=== PATIENT | female | born 1935 | race Caucasian/White ===

== ENCOUNTER 2023-03-10 07:50 | Emergency (ER) | payer MEDICARE, OTHER, SELFPAY ==
[2023-03-10] VITALS (7 sets, daily range): BP systolic 156–196; BP diastolic 76–98; PULSE 67–81; RESP 17; TEMP 36.6; O2SAT 94–97; BMI 21.1
--- NOTE | 2023-03-10 08:10 | CT_ITS ---
FINAL REPORT TECHNIQUE: Axial CT images of the cervical spine were obtained without contrast. Sagittal and coronal reformatted images were also obtained. This study was performed with techniques to keep radiation doses as low as reasonably achievable (ALARA). Individualized dose reduction techniques using automated exposure control or adjustment of mA and/or kV according to the patient's size were employed. CLINICAL HISTORY: Acute neck pain, fall prior to arrival COMPARISON: None FINDINGS: There is no evidence of fracture or dislocation. There is mild anterolisthesis of C4 on C5. There is moderate degenerative change. There is no evidence of canal stenosis. Prevertebral soft tissues are unremarkable. Note is made of a spiculated soft tissue opacity at the left lung apex measuring 24 mm worrisome for neoplasm. IMPRESSION: No fracture or acute bony abnormality identified. Soft tissue opacity left lung apex worrisome for neoplasm. Could be further evaluated with PET-CT. Reviewed, Interpreted and Dictated by David Dee III, MD Transcribed by Danielle Rush Authenticated and [facility]
--- NOTE | 2023-03-10 08:10 | CT_ITS ---
FINAL REPORT TECHNIQUE: Axial CT images of the face were obtained without contrast. Coronal reformatted images were also obtained. This study was performed with techniques to keep radiation doses as low as reasonably achievable, (ALARA). Individualized dose reduction techniques using automated exposure control or adjustment of mA and/or kV according to the patient''s size were employed. CLINICAL HISTORY: Fall prior to arrival, small lac, bleeding above right eye. COMPARISON: None FINDINGS: There is no evidence of fracture.The orbits are intact.The globes are intact. There is a fluid level in the left sphenoid sinus. There is partial opacification of the right sphenoid sinus. Mucosal thickening is noted of the left maxillary sinus. No soft tissue mass is seen. IMPRESSION: No fracture or acute bony abnormality identified. Findings of sinusitis. Reviewed, Interpreted and Dictated by David Dee III, MD Transcribed by Danielle Rush Authenticated and [facility]
--- NOTE | 2023-03-10 08:10 | CT_ITS ---
FINAL REPORT CLINICAL HISTORY: Fall prior to arrival, small lac above right eye. bleeding on the back of the head COMPARISON: None FINDINGS: Axial images of the head were obtained without contrast. Coronal reformatted images were also obtained. This study was performed with techniques to keep radiation doses as low as reasonably achievable (ALARA). Individualized dose reduction techniques using automated exposure control or adjustment of mA and/or kV according to the patient''s size were employed. There is mild generalized age appropriate atrophy. There is no evidence of intracranial hemorrhage or mass. The ventricular size is within normal limits. There is no evidence of shift of the midline structures. No acute skull abnormality is seen on the bone window images. Postoperative changes from left-sided craniotomy. There is right parietal scalp soft tissue swelling. IMPRESSION: No acute intracranial abnormality. Reviewed, Interpreted and Dictated by David Dee III, MD Transcribed by Danielle Rush Authenticated and [facility]
--- NOTE | 2023-03-10 08:11 | PC.NURSE ---
rad notified of Ct orders
--- NOTE | 2023-03-10 08:23 | PC.NURSE ---
pt in CT
--- NOTE | 2023-03-10 08:47 | HMH.EDGENADL ---
Discharge Plan Disposition Patient Disposition: Xfer Inpatient Rehab Fac Condition: Fair Chief Complaint: Fall Referrals Follow up/Referrals: Noble Wallace [Primary Care Provider] - See instructions ( follow-up for staple removal in 10 days) Clinical Impressions Clinical Impression: Laceration of occipital region of scalp without complication, Frequent falls Instructions Patient Instructions: How to Prevent Falls, DI for Laceration Repair -- [place] Print Language Print Language: Serbian Discharge ED Provider: Newton Ray General Adult HPI General Chief complaint: Fall Stated complaint: fall Time Seen by Provider: 03/10/23 08:48 Mode of Arrival: EMS Limitations: No Limitations Description of Symptoms (Recalled from ER Triage Doc. by RN): pt to ED from [facility] after a trip and fall going to the bathroom this morning. on assessment pt has a laceration to her head. pt denies any LOC or other pain at this time. pt is not taking any blood thinners according to her MAR from [facility]. History of Present Illness HPI narrative: patient presents to the emergency department after reportedly falling just prior to arrival. The patient fell after trying to get up out of bed. She denies being dizzy. The son states that recently she had fallen, sustained a T5 fracture as well as a clavicle fracture. She is unsteady on her feet at baseline. Patient comes in complaining of a headache. Denies any neck pain. Does describe some facial pain. Denies any chest pain, abdominal pain, new back pain, extremity injury. She is unsure when her last tetanus shot was Related Data Allergies Allergy/AdvReac Type Severity Reaction Status Date / Time No Known Allergies Allergy Verified 03/10/23 08:10 [facility] Disclaimer: The information contained in this section may have been updated after the patient was seen, as this information can be updated by other users. Social History Smoking Status: Never smoker alcohol intake: never current occupational status: retired Travel in the last 8 weeks: None ROS Obtained: Yes All systems reviewed & no additional complaints except as documented Constitutional Constitutional: Reports headache(s) ENT Ears, Nose, Mouth, and Throat: Reports headache(s) Integumentary/Breasts Skin/Breast: Reports other ( scalp laceration) Neurologic Neurologic: Reports headache(s) Physical Exam General General appearance: other ( awake, alert. No acute distress. Elderly appearing. Frail appearing) Head Head exam: other ( 3 cm laceration to the right posterior parietal region. No active bleeding at this time. Scalp hematoma noted. Mildly tender to palpation. No depression there is a secondary laceration which was approximately 5 cm just inferior to the 3 cm laceration) Eye Eye exam: Present normal appearance, PERRL, EOMI and other ( right periorbital contusion with minimal swelling noted) Neck Neck exam: Present normal inspection Chest Chest inspection: Present normal inspection Respiratory Respiratory exam: Present normal lung sounds bilaterally Cardiovascular Cardiovascular exam: Present regular rate, normal rhythm and normal heart sounds Abdominal Exam Abdominal exam: Present other ( soft, nontender, nondistended. No guarding. No rebound. Normal bowel sounds.) Extremities Exam Extremities exam: Present normal inspection Neurological Exam Neurological exam: Present alert and oriented X3 Psychiatric Psychiatric exam: Present normal affect and normal mood Medical Decision Making Medical Records Medical records reviewed: Yes I reviewed the patient's medical records. Gary Inquiry Pt receiving controlled substance: No Vital Signs: 03/10/23 07:51 Temperature 97.8 F Temperature Source Oral Pulse Rate [Left Radial] 79 Respiratory Rate 17 Blood Pressure [Right Arm] 196/98 H Blood Pressure Mean [Right Arm] 130 Blood Press
--- NOTE | 2023-03-10 09:20 | PC.NURSE ---
pt assisted to the bedside commode and changed into a new brief at this time. pt tolerated well
--- NOTE | 2023-03-10 09:42 | PC.NURSE ---
OSMAN HOWARD at placing [facility]
--- NOTE | 2023-03-10 10:32 | PC.NURSE ---
spoke with Jeff Woodall who stated they wont be able to get the patient until around 1pm
--- NOTE | 2023-03-10 10:40 | PC.NURSE ---
pt report called back to [facility] where they were informed that the son would be taking the patient back via POV but would need assistance getting her out of the car.
== END 2023-03-10 11:37 ==
PROVIDERS: Emergency Provider Emergency Medicine; PCP Family Medicine
DX: R51.9 Headache, unspecified (principal); S01.01XA Laceration without foreign body of scalp, initial encounter; W01.0XXA Fall on same level from slipping, tripping and stumbling without subsequent striking against object, initial encounter; Z23 Encounter for immunization
CPT/HCPCS: 12004; 70450; 70486; 72125; 90471; 90715; 96372; 99284; 99285

== ENCOUNTER → 2023-10-03 19:17 | Outpatient (CLI) | payer MEDICARE, OTHER, SELFPAY ==
[2023-10-03 19:42] LABS: Chloride 99 mmol/L (98-107); Sodium 136 mmol/L (136-145)
[2023-10-03 19:43] LABS: Potassium 4.2 mmoL/L (3.5-5.1)
[2023-10-03 19:45] LABS: Alanine Aminotransferase 44 U/L (12-78); Alkaline Phosphatase 151 U/L (38-126); Anion Gap 15.2 mEq/L (5-15); Aspartate Amino Transferase 57 U/L (14-36); Bilirubin,Total 0.7 mg/dl (0.2-1.3); Blood Urea Nitrogen 25 mg/dl (7-17); Carbon Dioxide 26 mmol/L (22.0-30.0); Estimated Glomerular Filt Rate 59 ml/min (>60); GFR (African American) 71 ML/MIN (>60)
[2023-10-03 19:46] LABS: Albumin Level 4.6 g/dl (3.5-5.0); Albumin/Globulin Ratio 1.6 (1.1-1.8); Calcium 8.8 mg/dl (8.4-10.2); Globulin 2.9 g/dL (1.3-3.2); Glucose 120 mg/dl (74-100); Total Protein,Serum 7.5 g/dl (6.3-8.2)
== END ==
PROVIDERS: PCP Family Medicine; Visit Provider Family Medicine
DX: I13.0 Hypertensive heart and chronic kidney disease with heart failure and stage 1 through stage 4 chronic kidney disease, or unspecified chronic kidney disease (principal); N18.9 Chronic kidney disease, unspecified
CPT/HCPCS: 80053

== ENCOUNTER 2023-10-28 07:48 | Outpatient (CLI) | payer MEDICARE, OTHER, SELFPAY ==
--- NOTE | 2023-10-28 07:49 | CA_ITS ---
APPROVED REPORT EXAM: Comprehensive 2D, Doppler, and color-flow Echocardiogram Photo Mask Inspector: Katie Kaiser RVT Ht: 4 ft 10 in Wt: 102lbs BSA: 1.37 BP: 161/84 mmHg Indications: HTN,ABN EKG,CM,HTN,EDEMA 2D Dimensions LA Volume 51.10 mL LA Volume Index 37.30 mL/m2 (M/F) 16-34 M-Mode Dimensions RVDd 2.50 cm (0.9-2.6) LA Diam 3.24 cm (1.9-4.0) LVDd 3.31 cm (3.5-5.7) LVDs 2.23 cm (3.5-5.7) IVSd 1.45 cm (0.6-1.1) PWd 0.41 cm (0.6-1.1) EF (Teich) 62.20% FS 32.60% EDV (Teich) 44.50 mL TAPSE 2.22 (<1.7) ESV (Teich) 16.80 mL LV Diastology E Decel Time 63 (160-240 msec) E/A Ratio 1.2 Aortic Valve MEAHGAN Index 0.99 cm2/m2 AoV Peak Juan. 110.0 (50-130 cm/s) AI PHT 581.00 ms AO Peak GR. 4.80 mmHg AO Mean GR. 2.60 (<5 mmHg) AO VTI 27.0 (18-25 cm) MEAGHAN (VTI) 1.39 (2.5-4.5 cm2) Mitral Valve MV E Max Juan. 90.0 (40-130 cm/s) MV A Velocity 73.0 (40-130 cm/s) E/A Ratio 1.24 MV PHT 19.0 ms Pulmonary Valve PV Peak Velocity 58.0 (50-150 cm/s) Tricuspid Valve TR P. Velocity 376.00 cm/s RAP Estimate 10.00 mmHg RVSP 66.50 mmHg Left Ventricle The left ventricle is normal size. The left ventricular systolic function is normal. The left ventricular ejection fraction is within the normal range. There is increased LV wall thickness. The septum is asynchronous. Grade 2 diastolic dysfunction is present. LVEF is 55%. Right Ventricle The right ventricle is normal in size. The right ventricular systolic function is normal. Atria The left atrium is moderately dilated. The right atrium is moderately dilated. There is no Doppler evidence of interatrial shunt. Aortic Valve The aortic valve is mildly thickened. There is no aortic valvular stenosis. Moderate aortic regurgitation. Mitral Valve The mitral valve leaflets are mildly thickened. No evidence of mitral valve stenosis. Mild to moderate mitral regurgitation. Tricuspid Valve The tricuspid valve leaflets are thin and pliable. Mild to moderate tricuspid regurgitation. RVSP is 40-45 mmHg. Pulmonic Valve The pulmonary valve is normal in structure. Mild pulmonic regurgitation. Great Vessels The aortic root is normal in size. The ascending aorta is normal in size. IVC is normal in size and collapses >50% with inspiration. Pericardium There is no pericardial effusion. Other Information Study Quality: Fair Conclusion Normal biventricular systolic function. Grade 2 diastolic dysfunction. Moderate biatrial enlargement. Moderate AI. Mild to moderate MR. Mild to moderate TR. Elevated RVSP 40-45 mmHg. Electronically signed by : Magda Metcalf MD 11/01/2023 00:15:56
--- NOTE | 2023-10-28 07:49 | CA_ITS ---
FINAL REPORT TECHNIQUE: Grayscale, color Doppler and duplex Doppler ultrasound of the kidneys, aorta and renal arteries was performed. Multiple velocities were measured. CLINICAL HISTORY: HTN COMPARISON: None FINDINGS: Aorta velocity: 88 cm/sec Right kidney: 9.3 cm. No evidence of hydronephrosis or mass. Right intrarenal RI: 0.56-0.74 Right renal artery velocity: 78 cm/sec. Right RAR (Renal artery-Aortic Ratio): 0.89 Left Kidney: Abnormally small measuring 6.9 cm in length. No evidence of hydronephrosis or mass. Left intrarenal RI: 0.59-0.65 Left renal artery velocity: 80 cm/sec. Left RAR (Renal Artery-Aortic Ratio): 0.91 IMPRESSION: No evidence of significant renal artery stenosis. Abnormally small left kidney. CT angiogram or postcontrast MR angiogram would be more sensitive for evaluation of possible renal artery stenosis. Reviewed, Interpreted and Dictated by David Dee III, MD Transcribed by Danielle Rush Authenticated and [facility]
== END 2023-10-28 23:59 ==
LOC: RT 07:49
PROVIDERS: PCP Family Medicine; Visit Provider Physician Assistant
DX: I10 Essential (primary) hypertension (principal); R94.31 Abnormal electrocardiogram [ECG] [EKG]; I42.8 Other cardiomyopathies
CPT/HCPCS: 93306; 93976

== ENCOUNTER 2024-05-08 22:03 | Emergency (ER) | payer MEDICARE, SELFPAY ==
[2024-05-08 22:03] VITALS: BP 177/95; PULSE 82; RESP 18; TEMP 36.9; O2SAT 94; BMI 21.9
[2024-05-08 22:30] VITALS: BP 163/86; PULSE 82; O2SAT 92
--- NOTE | 2024-05-08 22:37 | ED_ITS ---
<Statement entered by Isi Reyez MD - 05/08/24 23:20> I was consulted by the OLIVER, and we discussed the complexity of the problems being addressed. I approved the treatment and management plan for this patient's care in the emergency department, thus performing a substantive portion of the medical decision making. Isi Reyez MD, BUTCH, FACEP Discharge Plan Disposition Chief Complaint: Fall Prescriptions Prescriptions: No Action acetaminophen 325 mg capsule 325 mg PO QID PRN alendronate 70 mg/75 mL solution 35 mg PO WEEKLY calcium carbonate 500 mg calcium (1,250 mg) tablet 500 mg PO DAILY CertaVite Senior 0.4 mg-300 mcg- 250 mcg tablet 1 tab PO DAILY primidone 250 mg tablet 250 mg PO HS pantoprazole [Protonix] 20 mg tablet,delayed release (DR/EC) 20 mg PO DAILY levothyroxine [Synthroid] 50 mcg tablet 50 mcg PO DAILY cholecalciferol (vitamin D3) 25 mcg (1,000 unit) capsule 25 mcg PO DAILY zinc sulfate 50 mg zinc (220 mg) capsule 50 mg PO DAILY ondansetron 4 mg tablet,disintegrating 4 mg PO Q6H meclizine 25 mg tablet 25 mg PO DAILY PRN losartan 100 mg tablet 100 mg PO DAILY furosemide [Lasix] 20 mg tablet 20 mg PO DAILY terazosin 2 mg capsule 2 mg PO DAILY Adult Robitussin Peak Cold M-S 5-10-100 mg/5 mL liquid 10 ml PO Q4H PRN hydralazine 25 mg tablet 25 mg PO TID PRN (Reason: Systolic > 180) Qty: 90 2RF Referrals Follow up/Referrals: Provider,Referral, [Primary Care Provider] - See instructions Discharge ED Provider: Isi Reyez General Adult [facility] General Chief complaint: Fall Stated complaint: Fall, Lac on R forearm Time Seen by Provider: 05/08/24 22:37 Mode of Arrival: EMS Source of Information: Patient and EMS Limitations: No Limitations Description of Symptoms (Recalled from ER Triage Doc. by RN): pt was changing shoes for the night and got tripped up and fell, no loc and no prolonged down time unwitnessed by prison staff, pt has a goose egg on right cheek bone that has bruising to it as well as deep laceration right forearm, bleeding is controlled and edges are not approxiamate, wound has varying depths an edges History of Present Illness HPI narrative: Patient presents for evaluation of a fall injury. Patient bathroom and changing close for bedtime wearing socks and slipped fell landing on the floor and the bottom. She is not sure what she struck but she suffered a laceration to her mid right forearm and struck her face likely on the door frame she says. She did not lose consciousness and currently denies neck pain back pain chest pain headache shortness of breath fever chills hemoptysis hematochezia melena nausea vomiting diarrhea altered sensorium. Related Data Home Medications Medication Instructions Recorded Confirmed acetaminophen 325 mg capsule 325 mg PO QID PRN 10/14/23 11/08/23 alendronate 70 mg/75 mL oral 35 mg PO WEEKLY 10/14/23 11/08/23 solution calcium carbonate 500 mg PO DAILY 10/14/23 11/08/23 cholecalciferol (vitamin D3) 25 25 mcg PO DAILY 10/14/23 11/08/23 mcg (1,000 unit) capsule furosemide 20 mg tablet (Lasix) 20 mg PO DAILY 10/14/23 11/08/23 levothyroxine 50 mcg tablet 50 mcg PO DAILY 10/14/23 11/08/23 (Synthroid) losartan 100 mg tablet 100 mg PO DAILY 10/14/23 11/08/23 meclizine 25 mg tablet 25 mg PO DAILY PRN 10/14/23 11/08/23 [id number] acid 0.4 1 tab PO DAILY 10/14/23 11/08/23 mg-lycopene 300 mcg-lutein 250 mcg tablet (CertaVite Senior) ondansetron 4 mg disintegrating 4 mg PO Q6H 10/14/23 11/08/23 tablet pantoprazole 20 mg tablet,delayed 20 mg PO DAILY 10/14/23 11/08/23 release (Protonix) [id number] 5 10 ml PO Q4H PRN 10/14/23 11/08/23 mg-10 mg-100 mg/5 mL oral liquid (Adult Robitussin Peak Cold M-S) primidone 250 mg tablet 250 mg PO HS 10/14/23 11/08/23 terazosin 2 mg capsule 2 mg PO DAILY 10/14/23 11/08/23 zinc sulfate 50 mg zinc (220 mg) 50 mg PO DAILY 10/14/23 11/08/23 capsule Previous Rx's Medication Instructions Recorded hydralazine 25 mg tablet 25 mg PO TID PRN Systolic > 180 10/14/23 #90 tabs Allergies Allergy/AdvReac Type Severity Reaction Status Date / Time No Known Allergies Allergy Verified 11/08/23 15:11 [facility] Disclaimer: The information contained in this section may have been updated after the patient was seen, as this information can be updated by other users. Social History Smoking Status: Never smoker alcohol intake: never current occupational status: retired Travel in the last 8 weeks: None ROS Obtained: Yes Systems reviewed as appropriate & no additional complaints except as documented Physical Exam General General appearance: alert and in no apparent distress Head Head exam: other (Patient has ecchymosis on the right cheekbone/temporal area no bony deformity) Eye Eye exam: Present normal appearance, PERRL and EOMI ENT ENT exam: Present normal exam, normal oropharynx and mucous membranes moist Neck Neck exam: Present normal inspection and full ROM; Absent tenderness Chest Chest inspection: Present normal inspection; Absent tenderness Respiratory Respiratory exam: Present normal lung sounds bilaterally Cardiovascular Cardiovascular exam: Present regular rate, normal rhythm and normal heart sounds Abdominal Exam Abdominal exam: Present soft and normal bowel sounds; Absent tenderness Extremities Exam Extremities exam: Absent normal inspection (Patient has a very large laceration on the dorsum of the right forearm. Full assessment is deferred until workup is complete. Hemostatic currently) Back Exam Back exam: Present normal inspection; Absent tenderness Neurological Exam Neurological exam: Present alert, oriented X3 and CN II-XII intact Medical Decision Making Medical Records Medical records reviewed: Yes I reviewed the patient's medical records. Gary Inquiry Pt receiving controlled substance: No Vital Signs: 05/08/24 22:03 Temperature 98.5 F Temperature Source Oral Pulse Rate [Left Radial] 82 Respiratory Rate 18 Blood Pressure [Left Arm] 177/95 H Blood Pressure Mean [Left Arm] 122 02 Sat by Pulse Oximetry 94 L Oxygen Delivery Method Room Air Lab Data Lab results reviewed: Yes I reviewed the patient's lab results. Orders (Tests/Meds): ORDERS Category Date Time Status CT bony pelvis Stat Cat Scan 05/08/24 22:[address] cervical spine wo con Stat Cat Scan 05/08/24 22:[address] head/brain wo con Stat Cat Scan 05/08/24 22:[address] lumbar spine wo con Stat Cat Scan 05/08/24 22:[address] thoracic spine wo con Stat Cat Scan 05/08/24 22:47 Ordered Elbow XR right 2 views [XR elbow RT 2V] Stat Exams 05/08/24 22:45 Ordered Forearm XR right 2 views [XR forearm RT 2V] Stat Exams 05/08/24 22:45 Ordered Hand XR right 2 views [XR hand RT 2V] Stat Exams 05/08/24 22:45 Ordered Medical Decision Narrative: In summary patient is a 89-year-old female who presents to the emergency department for evaluation of fall. Patient is hemodynamically stable upon arrival, afebrile. Physical exam is remarkable for a large hematoma to her right cheekbone/temporal area with no bony deformity, a large laceration to the dorsum of her right forearm with again no bony deformity noted and hematoma at her left thumb. Patient appears to be neurovascularly intact distally in all 4 extremities with no focal neurologic deficits. She did not lose consciousness is not complaining of any pain elsewhere other than the thumb face and arm. Differential diagnosis includes contusion versus fracture versus intracranial injury versus complex laceration versus complicated laceration etc. Initial workup will be conducted with CT scan of the head without contrast and of the C- spine T-spine L-spine bony pelvis with plain film x-rays of the right upper extremity.. Initial interventions include Tylenol. Initial workup initiated and pending at the time of handoff to Dr. Cano at 2300 hrs. Critical Care Critical Care Time Critical Care Time: No
--- NOTE | 2024-05-08 22:45 | XR_ITS ---
PROCEDURE INFORMATION: Exam: XR Right Hand Exam date and time: 05/08/2024 11:15 PM Age: 89 years old Clinical indication: Pain; Hand; Right; Additional info: Fall injury, hematoma right thumb TECHNIQUE: Imaging protocol: Radiologic exam of the right hand. Views: 1 or 2 views. COMPARISON: CR XR FOREARM RT 2V 05/08/2024 11:15 PM FINDINGS: Bones/joints: Severe osteoarthritis and mild lateral subluxation of the thumb CMC joint. Otherwise normal alignment. Advanced osteoarthritis in the interphalangeal joints. No acute fracture. Soft tissues: Mild soft tissue swelling. IMPRESSION: 1. 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 2. No acute fracture.
--- NOTE | 2024-05-08 22:45 | XR_ITS ---
PROCEDURE INFORMATION: Exam: XR Right Forearm Exam date and time: 05/08/2024 11:15 PM Age: 89 years old Clinical indication: Pain; Lower or forearm; Right; Additional info: Fall TECHNIQUE: Imaging protocol: Radiologic exam of the right forearm. Views: 2 views. COMPARISON: CR XR HAND RT 2V 05/08/2024 11:15 PM FINDINGS: Bones/joints: Advanced osteoarthritis with mild lateral subluxation at the thumb CMC joint. Otherwise normal alignment. No acute fracture. Soft tissues: Soft tissue swelling in the thumb. Laceration and soft tissue swelling in the volar forearm. No foreign bodies. IMPRESSION: 1. No acute fracture. 2. Osteoarthritis. 3. Laceration and soft tissue swelling in the volar forearm. No foreign bodies.
--- NOTE | 2024-05-08 22:45 | XR_ITS ---
PROCEDURE INFORMATION: Exam: XR Right Elbow Exam date and time: 05/08/2024 11:15 PM Age: 89 years old Clinical indication: Pain; Elbow; Right; Additional info: Fall TECHNIQUE: Imaging protocol: Radiologic exam of the right elbow. Views: 1 or 2 views. COMPARISON: CR XR FOREARM RT 2V 05/08/2024 11:15 PM FINDINGS: Bones/joints: No acute fracture. Normal alignment. Elbow joint is unremarkable. Enthesopathic changes in the medial and lateral epicondyles. Soft tissues: Laceration with subcutaneous air and soft tissue swelling in the volar forearm. IMPRESSION: 1. No acute fracture or malalignment. 2. Laceration and soft tissue swelling in the volar forearm.
--- NOTE | 2024-05-08 22:47 | CT_ITS ---
PROCEDURE INFORMATION: Exam: CT Cervical Spine Without Contrast Exam date and time: 05/08/2024 11:03 PM Age: 89 years old Clinical indication: Injury or trauma; Additional info: Trauma, critical injury suspected TECHNIQUE: Imaging protocol: Computed tomography of the cervical spine without contrast. Radiation optimization: All CT scans at this facility use at least one of these dose optimization techniques: automated exposure control; mA and/or kV adjustment per patient size (includes targeted exams where dose is matched to clinical indication); or iterative reconstruction. COMPARISON: CT CERVICAL SPINE WO CON 03/10/2023 8:16 AM FINDINGS: Bones: No acute fracture. Advanced discogenic and facet degenerative changes. Grade 1 anterolisthesis at C4-C5. Otherwise normal alignment. Mild spinal stenosis at C5-C6. Lungs: Irregular spiculated 3.0 x 2.2 cm mass in the left upper lobe. Soft tissues: Unremarkable. IMPRESSION: 1. No acute fracture. 2. Advanced degenerative spondylosis. 3. Large mass in the left upper lobe concerning for malignancy. See chest CT report.
--- NOTE | 2024-05-08 22:47 | CT_ITS ---
PROCEDURE INFORMATION: Exam: CT Pelvis Without Contrast; Skeletal Exam date and time: 05/08/2024 11:12 PM Age: 89 years old Clinical indication: Injury or trauma; Additional info: Trauma, critical injury suspected TECHNIQUE: Imaging protocol: Computed tomography of the pelvis without contrast. Exam focused on the skeleton. Radiation optimization: All CT scans at this facility use at least one of these dose optimization techniques: automated exposure control; mA and/or kV adjustment per patient size (includes targeted exams where dose is matched to clinical indication); or iterative reconstruction. COMPARISON: CT BONY PELVIS 05/08/2024 11:12 PM FINDINGS: Bones/joints: Multiple sclerotic foci in the right L3 vertebral body and pelvis. No destructive bone lesions. Bones are osteopenic. Advanced degenerative arthrosis in the SI joints. 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 Grade 1 anterolisthesis at L4-L5. Severe multilevel neural foraminal stenoses in the lower lumbar spine. Bilateral hip joint osteoarthritis. Soft tissues: Unremarkable. IMPRESSION: 1. No acute fracture or malalignment. 2. Advanced degenerative changes in the spine and pelvis. 3. Multiple sclerotic foci in the spine and pelvis may be bone islands or may be seen in the setting of metastatic disease.
--- NOTE | 2024-05-08 22:47 | CT_ITS ---
PROCEDURE INFORMATION: Exam: CT Thoracic Spine Without Contrast Exam date and time: 05/08/2024 11:05 PM Age: 89 years old Clinical indication: Injury or trauma; Additional info: Trauma, critical injury suspected TECHNIQUE: Imaging protocol: Computed tomography of the thoracic spine without contrast. Radiation optimization: All CT scans at this facility use at least one of these dose optimization techniques: automated exposure control; mA and/or kV adjustment per patient size (includes targeted exams where dose is matched to clinical indication); or iterative reconstruction. COMPARISON: CT CERVICAL SPINE WO CON 05/08/2024 11:03 PM FINDINGS: Bones/joints: Age-indeterminate compression fractures of the T4 superior endplate and T5 inferior endplate. Chronic T9 and T11 compression fractures with changes of prior kyphoplasty. Mild discogenic and facet degenerative changes. Multiple healed posterior rib fractures. No subluxation. Soft tissues: Unremarkable. IMPRESSION: 1. Age-indeterminate T4 and T5 compression fractures. 2. Chronic T9 and T11 compression fractures. 3. Chronic healed posterior rib fractures.
--- NOTE | 2024-05-08 22:47 | CT_ITS ---
PROCEDURE INFORMATION: Exam: CT Head Without Contrast Exam date and time: 05/08/2024 11:01 PM Age: 89 years old Clinical indication: Injury or trauma; Additional info: Trauma, critical injury suspected TECHNIQUE: Imaging protocol: Computed tomography of the head without contrast. Radiation optimization: All CT scans at this facility use at least one of these dose optimization techniques: automated exposure control; mA and/or kV adjustment per patient size (includes targeted exams where dose is matched to clinical indication); or iterative reconstruction. COMPARISON: CT HEAD/BRAIN WO CON 08/05/2024 23:01 FINDINGS: Brain: Mild dural thickening underlying the left craniotomy. This is a chronic finding. There is a small amount of extra-axial blood overlying the right frontal convexity example image 190 series 5. No associated mass effect. Moderate chronic brain volume loss and chronic small vessel ischemic changes. Cerebral ventricles: No ventriculomegaly. Paranasal sinuses: Small amount of secretions in the paranasal sinuses. Hyperostosis of the sphenoid sinus suggests chronic sinusitis. Mild mucosal thickening in the paranasal sinuses. Mastoid air cells: Visualized mastoid air cells are well aerated. Orbital cavities: Status post bilateral cataract surgery. Bones: Status post left craniotomy. Soft tissues: Hematoma in the right side of the face. IMPRESSION: There is a small amount of extra-axial blood overlying the right frontal convexity example image 190 series 5. No associated mass effect.
--- NOTE | 2024-05-08 22:47 | CT_ITS ---
PROCEDURE INFORMATION: Exam: CT Lumbar Spine Without Contrast Exam date and time: 05/08/2024 11:08 PM Age: 89 years old Clinical indication: Injury or trauma; Additional info: Trauma, critical injury suspected TECHNIQUE: Imaging protocol: Computed tomography of the lumbar spine without contrast. Radiation optimization: All CT scans at this facility use at least one of these dose optimization techniques: automated exposure control; mA and/or kV adjustment per patient size (includes targeted exams where dose is matched to clinical indication); or iterative reconstruction. 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 Grade 1 anterolisthesis at L4-L5 and L5-S1. Otherwise normal alignment. Chronic T11 and L1 compression fractures and prior vertebroplasty. No acute fracture. Severe discogenic degenerative changes at L4-L5 and L5-S1. Advanced multilevel facet arthrosis and hypertrophy. Incidental bone islands in the L3 vertebral body and sacrum. Multilevel foraminal stenosis, worst at L4-L5 and L5-S1. Soft tissues: Unremarkable. IMPRESSION: 1. No acute fracture. 2. Chronic T11 and L1 compression fractures. 3. Advanced degenerative changes in the spine and pelvis.
--- NOTE | 2024-05-08 23:03 | CT_ITS ---
PROCEDURE INFORMATION: Exam: CT Abdomen And Pelvis Without Contrast Exam date and time: 05/08/2024 11:18 PM Age: 89 years old Clinical indication: Injury or trauma; Fall TECHNIQUE: Imaging protocol: Computed tomography of the abdomen and pelvis without contrast. Radiation optimization: All CT scans at this facility use at least one of these dose optimization techniques: automated exposure control; mA and/or kV adjustment per patient size (includes targeted exams where dose is matched to clinical indication); or iterative reconstruction. COMPARISON: CT BONY PELVIS 05/08/2024 11:12 PM FINDINGS: Liver: Unremarkable. No mass. Gallbladder and biliary ducts: Normal. No calcified stones. No ductal dilation. Pancreas: Normal. No ductal dilation. Spleen: Normal. No splenomegaly. Adrenal glands: Normal. No mass. Kidneys and ureters: 1.8 cm exophytic right renal upper pole cyst. No calculi or hydronephrosis. Stomach and bowel: Large amount of fecal material in the colon. No obstruction. No inflammatory changes. Appendix: No evidence of appendicitis. Intraperitoneal space: No free air. No abscess or free fluid. Vasculature: Unremarkable. No aortic aneurysm or dissection. Lymph nodes: Unremarkable. No enlarged lymph nodes. Urinary bladder: Unremarkable as visualized. Reproductive: Unremarkable as visualized. Bones/joints: Advanced degenerative changes in the spine and pelvis. Grade 1 anterolisthesis at L4-L5 and L5-S1. Chronic compression fractures prior kyphoplasty at T9, T11, and L1. Multiple healed left rib fractures. Bone island in the right L3 vertebral body and pedicle. Soft tissues: Unremarkable. IMPRESSION: 1. No acute findings. 2. Chronic T9, T11, and L1 compression fractures. 3. Constipation. COMMENTS: Consistent with the [employer]'s Incidental Findings Committee white paper (J Am Ernie Radiol 2018): Any incidental renal lesion less than 1 cm or classified as too small to characterize, or any incidental cystic renal lesion characterized as simple-appearing, is likely benign. No follow-up imaging is recommended for these lesions per consensus recommendations based on imaging criteria.
--- NOTE | 2024-05-08 23:03 | CT_ITS ---
PROCEDURE INFORMATION: Exam: CT Chest Without Contrast; Diagnostic Exam date and time: 05/08/2024 11:15 PM Age: 89 years old Clinical indication: Injury or trauma; Additional info: Fall TECHNIQUE: Imaging protocol: Diagnostic computed tomography of the chest without contrast. Radiation optimization: All CT scans at this facility use at least one of these dose optimization techniques: automated exposure control; mA and/or kV adjustment per patient size (includes targeted exams where dose is matched to clinical indication); or iterative reconstruction. COMPARISON: CT THORACIC SPINE WO CON 05/08/2024 11:05 PM FINDINGS: Lungs: 3.1 x 2.4 cm spiculated mass in the anterior left upper lobe. 8 mm subpleural ground-glass opacity in the superior segment of the right lower lobe. Mild subsegmental atelectasis. Pleural spaces: Unremarkable. No pneumothorax. No pleural effusion. Heart: Mild cardiomegaly. Small pericardial effusion. Coronary arteries: Mild coronary artery atherosclerotic disease. Lymph nodes: No enlarged lymph nodes. Vasculature: No aortic aneurysm. Bones/joints: Age-indeterminate compression fractures of the T4 superior endplate and T5 inferior endplate. Chronic compression fractures in prior kyphoplasty at T9, T11, and L1. Multiple healed posterior rib fractures. Numerous small nonspecific sclerotic foci in multiple ribs. Soft tissues: Unremarkable. IMPRESSION: 1. Spiculated 3.2 x 2.4 cm left upper lobe mass concerning for malignancy. 2. Age-indeterminate T4 and T5 compression fractures. 3. Chronic T9, T11, and L1 compression fractures. 4. Multiple sclerotic foci in the ribs are nonspecific but could be seen in the setting of metastatic disease. 5. Cardiomegaly.
[2024-05-08] MEDS: TET/DIPHTH/PERT-ADULT 0.5ML SYRINGE 0.5 ML IM (23:59)
--- NOTE | 2024-05-09 | PC.NURSE ---
Dr. Cano at bedside repairing laceration
[2024-05-09] MEDS: CEFAZOLIN SODIUM 2 GM in 0.9 % SODIUM CHLORIDE 100 ML IV (00:02)
--- NOTE | 2024-05-09 00:17 | PC.NURSE ---
[facility] called with critical findings on pt's head ct. at bedside suturing pt's RUE laceration and I showed MD the final read on head ct.
--- NOTE | 2024-05-09 00:59 | PC.NURSE ---
Contacted [facility] in regards to consult with Neuro surgery for this patient.
[2024-05-09 01:00] VITALS: BP 163/89; PULSE 85; O2SAT 94
--- NOTE | 2024-05-09 01:17 | PC.NURSE ---
Pt assisted to BSC, placed in a pt gown, and provided 2 warm blankets.
[2024-05-09 01:30] VITALS: BP 179/95; PULSE 84; O2SAT 93
--- NOTE | 2024-05-09 01:54 | PC.NURSE ---
Pt is resting comfortably at this time. Vitals are stable.
[2024-05-09 02:00] VITALS: BP 167/87; PULSE 84; O2SAT 92
--- NOTE | 2024-05-09 02:07 | PC.NURSE ---
spoke with nurse from [facility] and gave update at this time.
[2024-05-09 02:30] VITALS: BP 157/86; PULSE 83; O2SAT 94
--- NOTE | 2024-05-09 04:00 | PC.NURSE ---
Rounded on pt, assisted her to BSC. Helped pt back to bed and repositioned her in bed
--- NOTE | 2024-05-09 05:00 | CT_ITS ---
PROCEDURE INFORMATION: Exam: CT Head Without Contrast Exam date and time: 05/09/2024 5:01 AM Age: 89 years old Clinical indication: Injury or trauma; Additional info: Repeat CT, hemorrhagic contusion TECHNIQUE: Imaging protocol: Computed tomography of the head without contrast. Radiation optimization: All CT scans at this facility use at least one of these dose optimization techniques: automated exposure control; mA and/or kV adjustment per patient size (includes targeted exams where dose is matched to clinical indication); or iterative reconstruction. COMPARISON: CT HEAD/BRAIN WO CON 05/08/2024 11:01 PM FINDINGS: Brain: Small right frontal subarachnoid hemorrhage is not significantly changed. No new intracranial hemorrhage. Generalized cerebral volume loss and changes of white matter microvascular. No midline shift or mass effect. Chronic dural thickening at the left craniotomy site. Cerebral ventricles: No hydrocephalus. Paranasal sinuses: Mild mucosal thickening in the paranasal sinuses, most severe in the sphenoid sinuses. Mastoid air cells: Mastoid air cells are clear. Bones: No fracture. Soft tissues: Unremarkable. IMPRESSION: 1. Stable right frontal subarachnoid hemorrhage. 2. No new abnormalities.
--- NOTE | 2024-05-09 05:03 | PC.NURSE ---
pt back to room from CT
--- NOTE | 2024-05-09 05:22 | PC.NURSE ---
Jeff Woodall updated on patient status
--- NOTE | 2024-05-09 06:46 | PC.NURSE ---
Pt used bedside commode.
[2024-05-09 07:37] VITALS: BP 157/86; PULSE 83; RESP 19; TEMP 36.6
== END 2024-05-09 07:38 | disposition home or self-care (01) ==
PROVIDERS: Emergency Provider Emergency Medicine
DX: S51.811A Laceration without foreign body of right forearm, initial encounter (principal); R91.8 Other nonspecific abnormal finding of lung field; W18.39XA Other fall on same level, initial encounter; S06.310A Contusion and laceration of right cerebrum without loss of consciousness, initial encounter; Z23 Encounter for immunization
CPT/HCPCS: 12052; 70450; 71250; 72125; 72128; 72131; 72192; 73070; 73090; 73120; 74176; 90471; 90715; 96365; 99285

== ENCOUNTER 2024-05-21 13:46 | Outpatient (CLI) | payer MEDICARE, SELFPAY ==
--- NOTE | 2024-05-21 13:56 | XR_ITS ---
PROCEDURE INFORMATION: Exam: XR Lumbosacral Spine Exam date and time: 05/21/2024 1:47 PM Age: 89 years old Clinical indication: Injury or trauma; Fall; Blunt trauma (contusions or hematomas); Prior surgery; Surgery date: 6+ months; Surgery type: Kyphoplasty; Additional info: Pain from recent fall TECHNIQUE: Imaging protocol: Radiologic exam of the lumbosacral spine. Views: 2 or 3 views. COMPARISON: CT LUMBAR SPINE WO CON 05/08/2024 11:08 PM FINDINGS: Bones/joints: Vertebroplasties at T9 , T11, and L1. anterolisthesis of L4 with respect to L5 and L5 with respect to S1. Deformity in the sacrum consistent with prior fracture.. No acute fracture identified. Soft tissues: Unremarkable. IMPRESSION: 1. 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 2. Anterolisthesis of L4 with respect to L5 and L5 with respect to S1. 3. Deformity in the sacrum consistent with prior fracture.. 4. No acute fracture identified.
== END 2024-05-21 23:59 | disposition home or self-care (01) ==
LOC: RAD 13:49
PROVIDERS: PCP Family Medicine; Visit Provider Family Medicine
DX: M43.16 Spondylolisthesis, lumbar region (principal); M54.9 Dorsalgia, unspecified; R29.6 Repeated falls; Z98.890 Other specified postprocedural states
CPT/HCPCS: 72100

== ENCOUNTER 2024-05-24 16:11 | Outpatient (CLI) | payer MEDICARE, OTHER, SELFPAY ==
--- NOTE | 2024-05-24 16:14 | MR_ITS ---
PROCEDURE INFORMATION: Exam: MR Lumbar Spine Without Contrast Exam date and time: 05/24/2024 5:15 PM Age: 89 years old Clinical indication: Injury or trauma; Fall; Blunt trauma (contusions or hematomas); Additional info: Back pain , recent fall TECHNIQUE: Imaging protocol: Magnetic resonance imaging of the lumbar spine without contrast. COMPARISON: 1. CT LUMBAR SPINE WO [facility] 05/08/2024 11:[address] ABDOMEN PELVIS WO [facility] 05/08/2024 11:18 PM FINDINGS: Bones/joints: A moderate decrease in vertebral height/burst fracture is identified of the T10 vertebral body, which has progressed compared to the previous CT. Mild retropulsion is identified of the dorsal cortex. There is a linear band of T2 hyperintensity within this vertebral body, consistent with acute or subacute fracture. A focal concavity is identified of the superior T10 endplate. A mild compression fracture is visualized of the L1 vertebral body, with a moderate compression fracture of T11. Hypointense vertebroplasty and retropulsion are identified at these levels. Grade 2 anterolisthesis of L5 on S1, with bilateral spondylolysis. Grade 1 anterolisthesis is visualized of L4 on L5 with slight retrolisthesis of L3 on L4. Minimal narrowing of the thecal sac is identified at T11 and L1, due to retropulsion. Within the posterior right iliac bone, a nonspecific sclerotic lesion is identified measuring 8 mm in diameter, without progression compared to the previous CT. T1 hypointense lesions are identified within the L3 and L4 vertebral bodies. This is sclerotic at the L3 level when correlated the prior CT, currently measuring 1.6 x 1.1 cm. Spinal cord: The distal end of the conus medullaris ends at T12-L1, normal in position. Multilevel findings: Degenerative changes are noted at multiple lumbar and lower thoracic levels, with a decrease in the T2 signal intensity of the discs, as well as disc bulge/osteophyte complexes. T10-T11: Right neural foraminal narrowing is visualized at T10-11. This level is out of the field of view, limiting the evaluation. L1-L2: Bilateral facet arthropathy with hypertrophy of the ligamentum flavum. Mild disc bulging is visualized. No significant spinal canal stenosis. Mild right neural foraminal narrowing. There is slight narrowing the inferior aspect of the left neural foramen. L2-L3: Bilateral facet arthropathy with hypertrophy of the ligamentum flavum. A broad-based disc bulge is visualized, with minimal spinal canal stenosis. There is narrowing of both lateral recesses. Mild bilateral neural foraminal narrowing is identified. L3-L4: Bilateral facet arthropathy with hypertrophy of the ligamentum flavum. Mild disc bulging is visualized, without significant spinal canal stenosis. There is narrowing of both lateral recesses. Mild bilateral neural foraminal narrowing is identified. L4-L5: Bilateral facet arthropathy with hypertrophy of the ligamentum flavum. A broad-based disc bulge is visualized, with minimal narrowing of the thecal sac and narrowing of both lateral recesses. Mild bilateral neural foraminal narrowing is identified. L5-S1: Bilateral facet arthropathy. A broad-based disc bulge is visualized, without significant spinal canal stenosis. Moderate right and moderate to severe left neural foraminal narrowing is visualized. Soft tissues: Soft tissue swelling is seen posteriorly. Paravertebral edema is identified at the level of the lower thoracic spine. Gallbladder and biliary ducts: The gallbladder is mildly distended. Intraperitoneal space: There is a small amount of free fluid within the pelvis. Reproductive: At the fundus of the uterus, there is a T2 hypointense intramural lesion measuring 6 mm, likely representing a fibroid. Anterior to the L5-S1 disc and likely within the ovary, there is a 1.4 cm cystic collection of fluid. IMPRESSION: 1. A moderate decrease in vertebral height/burst fracture is identified of the T10 vertebral body, which has progressed compared to the previous CT. Mild retropulsion is identified of the dorsal cortex. There is a linear band of T2 hyperintensity within this vertebral body, consistent with acute or subacute fracture. 2. A mild compression fracture is visualized of the L1 vertebral body, with a moderate compression fracture of T11. Hypointense vertebroplasty and retropulsion are identified at these levels. These findings are stable compared to the prior CT. 3. Grade 2 anterolisthesis of L5 on S1, with bilateral spondylolysis. Grade 1 anterolisthesis is visualized of L4 on L5 with slight retrolisthesis of L3 on L4. 4. Degenerative changes are noted at multiple lumbar and lower thoracic levels, as described above. 5. Minimal narrowing of the thecal sac is identified at T11 and L1, due to retropulsion. Minimal narrowing of the thecal sac at L2-L3 and L4-L5. 6. Neural foraminal narrowing at all lumbar levels, as well as T10-11. 7. There is a small amount of free fluid within the pelvis. 8. At the fundus of the uterus, there is a small intramural lesion, likely representing a fibroid. Anterior to the L5-S1 disc and likely within the ovary, there is a 1.4 cm cystic collection of fluid. Correlation with ultrasonography is suggested. 9. Within the posterior right iliac bone, a nonspecific sclerotic lesion is identified measuring 8 mm in diameter, without progression compared to the previous CT. T1 hypointense lesions are identified within the L3 and L4 vertebral bodies. This is sclerotic at the L3 level when correlated the prior CT, currently measuring 1.6 x 1.1 cm. Correlate for a clinical history of malignancy and possible follow-up bone scan are recommended. 10. The gallbladder is mildly distended. Clinical correlation recommended. 11. Additional findings described above.
--- NOTE | 2024-05-24 16:14 | MR_ITS ---
PROCEDURE INFORMATION: Exam: MR Head Without Contrast Exam date and time: 05/24/2024 5:15 PM Age: 89 years old Clinical indication: Injury or trauma; Fall; Blunt trauma (contusions or hematomas); Additional info: Head trauma , fall TECHNIQUE: Imaging protocol: Magnetic resonance imaging of the head without contrast. COMPARISON: CT HEAD/BRAIN WO CON 05/09/2024 5:01 AM FINDINGS: Brain: Age-related involutional changes and chronic microvascular ischemic disease. No acute infarct. No mass effect or midline shift. No extra-axial collection. No acute intracranial hemorrhage. Basal cisterns are patent. Cerebral ventricles: Normal. No ventriculomegaly. Bones: Left craniotomy changes. Paranasal sinuses: Normal as visualized. No acute sinusitis. Mastoid air cells: Normal as visualized. No mastoid effusion. Orbital cavities: Bilateral cataract surgery. Soft tissues: Unremarkable. IMPRESSION: No acute infarct, acute intracranial hemorrhage, or mass effect.
== END 2024-05-24 23:59 | disposition home or self-care (01) ==
LOC: RAD 16:12
PROVIDERS: PCP Family Medicine; Visit Provider Family Medicine
DX: S09.90XA Unspecified injury of head, initial encounter (principal); M54.9 Dorsalgia, unspecified
CPT/HCPCS: 70551; 72148

== ENCOUNTER 2024-09-04 23:30 | Emergency (ER) | payer MEDICARE, SELFPAY ==
--- NOTE | 2024-09-04 23:21 | CT_ITS ---
PROCEDURE INFORMATION: Exam: CT Cervical Spine Without Contrast Exam date and time: 09/04/2024 11:47 PM Age: 89 years old Clinical indication: Injury or trauma; Fall; Additional info: Head trauma TECHNIQUE: Imaging protocol: Computed tomography of the cervical spine without contrast. Radiation optimization: All CT scans at this facility use at least one of these dose optimization techniques: automated exposure control; mA and/or kV adjustment per patient size (includes targeted exams where dose is matched to clinical indication); or iterative reconstruction. COMPARISON: CT CERVICAL SPINE WO CON 05/08/2024 11:03 PM FINDINGS: Bones: No acute fracture. There is some straightening of the spine. Slight anterolisthesis is noted at C4-C5. Severe degenerative disc disease is noted at C5-C6 and C6-C7. Diffuse severe facet arthropathy. No significant disc bulge or herniation. No severe spinal canal stenosis. Bilateral bony foraminal stenosis at C5-C6. Paranasal sinuses: Sphenoid sinus disease noted. Lungs: Lung apices are normal. Soft tissues: Unremarkable. IMPRESSION: No acute cervical spine fracture.
--- NOTE | 2024-09-04 23:21 | CT_ITS ---
PROCEDURE INFORMATION: Exam: CT Head Without Contrast Exam date and time: 09/04/2024 11:44 PM Age: 89 years old Clinical indication: Injury or trauma; Fall; Additional info: Head trauma TECHNIQUE: Imaging protocol: Computed tomography of the head without contrast. Radiation optimization: All CT scans at this facility use at least one of these dose optimization techniques: automated exposure control; mA and/or kV adjustment per patient size (includes targeted exams where dose is matched to clinical indication); or iterative reconstruction. COMPARISON: CT HEAD/BRAIN WO CON 09/04/2024 11:44 PM FINDINGS: Brain: There is age related atrophy. No hemorrhage. Previously noted right subdural hematoma has resolved. There is mild periventricular white matter hypodensity consistent with chronic small vessel disease. No mass effect. Cerebral ventricles: Ventricular enlargement secondary to parenchymal atrophy. Paranasal sinuses: Visualized sinuses are unremarkable. No fluid levels. Mastoid air cells: Visualized mastoid air cells are well aerated. Orbital cavities: There has been bilateral lens extraction. Bones: Evidence of left parietal craniotomy. No acute fracture. Soft tissues: There is a small posterior left parietal scalp hematoma. IMPRESSION: 1. No acute intracranial abnormality. 2. Small posterior left parietal scalp hematoma. 3. Previously noted right subdural hematoma has resolved.
--- NOTE | 2024-09-04 23:22 | XR_ITS ---
PROCEDURE INFORMATION: Exam: XR Pelvis Exam date and time: 09/04/2024 11:55 PM Age: 89 years old Clinical indication: Injury or trauma; Fall TECHNIQUE: Imaging protocol: Radiologic exam of the pelvis. Views: 1 or 2 view. Total images: 1 COMPARISON: CT ABDOMEN PELVIS WO CON 05/08/2024 11:18 PM FINDINGS: Bones/joints: Osteopenia. Symmetric mild degenerative changes bilateral hips. Sclerotic bone lesion in the right ilium. No pelvic fracture. No joint dislocation. No widening of the pubic symphysis or sacroiliac joints. Mild degenerative changes lower lumbar spine. Sclerotic appearance of the right L3 pedicle. Soft tissues: Unremarkable soft tissues. Vasculature: Numerous pelvic phleboliths. IMPRESSION: 1. No acute pelvic fracture. 2. Sclerotic bone lesions in the right ilium and right L3 pedicle, corresponding with prior CT. Correlate with history of bone metastases.
--- NOTE | 2024-09-04 23:22 | XR_ITS ---
PROCEDURE INFORMATION: Exam: XR Chest Exam date and time: 09/04/2024 11:55 PM Age: 89 years old Clinical indication: Injury or trauma; Fall TECHNIQUE: Imaging protocol: Radiologic exam of the chest. Views: 1 view. Total images: 1 COMPARISON: CT CHEST WO CON 05/08/2024 11:15 PM FINDINGS: Lungs: Approximate 3 cm left upper lobe mass concerning for malignancy and corresponding with prior chest CT May 08, 2024. Mild left basilar atelectasis or scarring. Right lung is clear. No pulmonary vascular congestion. Pleural spaces: Unremarkable. No pleural effusion. No pneumothorax. Heart/Mediastinum: Mild cardiomegaly. No mediastinal widening. Vasculature: Atherosclerotic and tortuous thoracic aorta. Diaphragm: Chronic mild elevation left hemidiaphragm. Bones/joints: Thoracic vertebral compression deformities and vertebroplasty changes. IMPRESSION: 1. Similar 3 cm left upper lobe mass, highly concerning for primary malignancy. This corresponds with chest CT findings May 08, 2024. 2. Mild left basilar atelectasis or scarring 3. Stable mild cardiomegaly 4. Multilevel vertebroplasties.
[2024-09-04 23:27] VITALS: BP 179/89; PULSE 75; RESP 16; TEMP 36.8; O2SAT 94; BMI 22.8
--- NOTE | 2024-09-04 23:33 | ED_ITS ---
Discharge Plan Disposition Patient Disposition: Home, Self-Care Prescriptions Prescriptions: No Action acetaminophen 325 mg capsule 325 mg PO QID PRN alendronate 70 mg/75 mL solution 35 mg PO WEEKLY calcium carbonate 500 mg calcium (1,250 mg) tablet 500 mg PO DAILY CertaVite Senior 0.4 mg-300 mcg- 250 mcg tablet 1 tab PO DAILY primidone 250 mg tablet 250 mg PO HS pantoprazole [Protonix] 20 mg tablet,delayed release (DR/EC) 20 mg PO DAILY levothyroxine [Synthroid] 50 mcg tablet 50 mcg PO DAILY cholecalciferol (vitamin D3) 25 mcg (1,000 unit) capsule 25 mcg PO DAILY zinc sulfate 50 mg zinc (220 mg) capsule 50 mg PO DAILY ondansetron 4 mg tablet,disintegrating 4 mg PO Q6H meclizine 25 mg tablet 25 mg PO DAILY PRN losartan 100 mg tablet 100 mg PO DAILY furosemide [Lasix] 20 mg tablet 20 mg PO DAILY terazosin 2 mg capsule 2 mg PO DAILY Adult Robitussin Peak Cold M-S 5-10-100 mg/5 mL liquid 10 ml PO Q4H PRN hydralazine 25 mg tablet 25 mg PO TID PRN (Reason: Systolic > 180) Qty: 90 2RF Referrals Follow up/Referrals: Provider,Referral, MD [Primary Care Provider] - See instructions Activity Restrictions/Add. Instructions Additional Instructions/Restrictions: Please follow-up with your primary care provider. Please return to the emergency department if you develop any new or worsening symptoms or become concerned for your health. Please have the mila removed in the next 7 to 10 days. Please follow-up for assessment of the lung mass that was noted on your x-ray. Clinical Impressions Clinical Impression: Laceration of occipital scalp, Lung mass Print Language Print Language: Vietnamese Discharge ED Provider: Jerome Cano Adult HPI General Chief complaint: Fall Stated complaint: fall Time Seen by Provider: 09/04/24 23:33 Mode of Arrival: EMS Source of Information: Patient and EMS Limitations: No Limitations Description of Symptoms (Recalled from ER Triage Doc. by RN): pt to ED via EMS with c/o fall @2220. EMS reports pt was transferring from a chair to her bed and sat too soon causing her fall to the ground. pt has a small laceration to he back of her head. EMS reports that she possibly hit her head on her walker. No LOC, and pt is not on blood thinners. History of Present Illness HPI narrative: 89-year-old female with history of hypertension, prior hemorrhagic contusion in April, currently on no blood thinners presents with a small laceration of the back of the head. She reports that she got up from her bed to adjust the thermostat, when she came back to the bed she turned around and sat down on the bed but missed the bed and sat on the ground. She called the staff at the [facility] and they helped her walk to a reclining chair. She reports that she has no pain at this time. She denies loss of consciousness. She has a small laceration on the occiput, hemostatic. She denies chest pain abdominal pain shortness of breath. Reports that she was able to walk after the fall without difficulty. Related Data Home Medications ?Medication ?Instructions ?Recorded ?Confirmed acetaminophen 325 mg capsule 325 mg PO QID PRN 10/14/23 11/08/23 alendronate 70 mg/75 mL oral 35 mg PO WEEKLY 10/14/23 11/08/23 solution calcium carbonate 500 mg PO DAILY 10/14/23 11/08/23 cholecalciferol (vitamin D3) 25 25 mcg PO DAILY 10/14/23 11/08/23 mcg (1,000 unit) capsule furosemide 20 mg tablet (Lasix) 20 mg PO DAILY 10/14/23 11/08/23 levothyroxine 50 mcg tablet 50 mcg PO DAILY 10/14/23 11/08/23 (Synthroid) losartan 100 mg tablet 100 mg PO DAILY 10/14/23 11/08/23 meclizine 25 mg tablet 25 mg PO DAILY PRN 10/14/23 11/08/23 tqzxzqxa-tjw-ruvuf acid 0.4 1 tab PO DAILY 10/14/23 11/08/23 mg-lycopene 300 mcg-lutein 250 mcg tablet (CertaVite Senior) ondansetron 4 mg disintegrating 4 mg PO Q6H 10/14/23 11/08/23 tablet pantoprazole 20 mg tablet,delayed 20 mg PO DAILY 10/14/23 11/08/23 release (Protonix) [id number] 5 10 ml PO Q4H PRN 10/14/23 11/08/23 mg-10 mg-100 mg/5 mL oral liquid (Adult Robitussin Peak Cold M-S) primidone 250 mg tablet 250 mg PO HS 10/14/23 11/08/23 terazosin 2 mg capsule 2 mg PO DAILY 10/14/23 11/08/23 zinc sulfate 50 mg zinc (220 mg) 50 mg PO DAILY 10/14/23 11/08/23 capsule Previous Rx's ?Medication ?Instructions ?Recorded hydralazine 25 mg tablet 25 mg PO TID PRN Systolic > 180 10/14/23 #90 tabs Allergies Allergy/AdvReac Type Severity Reaction Status Date / Time No Known Allergies Allergy Verified 11/08/23 15:11 [facility] Disclaimer: The information contained in this section may have been updated after the patient was seen, as this information can be updated by other users. Social History Smoking Status: Unknown if ever smoked alcohol intake: never current occupational status: retired Travel in the last 8 weeks: None Other Medical History Have you received the Pneumonia Vaccine: Yes ROS Obtained: Yes All systems reviewed & no additional complaints except as documented Physical Exam General General appearance: alert and in no apparent distress Head Head exam: normocephalic and other (Approximately 2 cm linear scalp laceration on the occiput, hemostatic, will approximate) Eye Eye exam: Present normal appearance, PERRL and EOMI ENT ENT exam: Present normal oropharynx and normal external ear exam Neck Neck exam: Present normal inspection and full ROM; Absent tenderness Chest Chest inspection: Present normal inspection and symmetric chest wall rise; Absent tenderness Respiratory Respiratory exam: Present normal lung sounds bilaterally; Absent respiratory distress Cardiovascular Cardiovascular exam: Present regular rate and normal rhythm Abdominal Exam Abdominal exam: Present soft; Absent distention, tenderness or guarding Extremities Exam Extremities exam: Present normal inspection; Absent tenderness, edema or joint swelling Back Exam Back exam: Present normal inspection; Absent tenderness Neurological Exam Neurological exam: Present alert and oriented X3; Absent motor sensory deficit Psychiatric Psychiatric exam: Present normal affect and normal mood Skin Skin exam: Present warm, dry and normal color Lymphatic Lymphatic Findings: no adenopathy Medical Decision Making Medical Records Medical records reviewed: Yes I reviewed the patient's medical records. Screening: Per USPSTF and CDC recommendations, given the prevalence of disease in our region, it is our hospital?s policy to screen for HIV and viral Hepatitis for a ll patients aged 18 and over and those with ongoing risk factors. Gary Inquiry Pt receiving controlled substance: No Gary was queried for this patient: No Vital Signs: 09/04/24 23:27 09/05/24 00:30 Temperature 98.3 F Temperature Source Oral Pulse Rate [Left Radial] 75 Respiratory Rate 16 Blood Pressure 142/95 H Blood Pressure [Right Arm] 179/89 H Blood Pressure Mean 118 Blood Pressure Mean [Right Arm] 119 Blood Pressure Source [Right Arm] Automatic Cuff 02 Sat by Pulse Oximetry 94 L Oxygen Delivery Method Room Air Lab Data Lab results reviewed: Yes I reviewed the patient's lab results. Orders (Tests/Meds): ORDERS Category Date Time Status CT cervical spine wo con Stat Cat Scan 09/04/24 23:[address] head/brain wo con Stat Cat Scan 09/04/24 23:21 Completed CXR --portable [XR chest portable] Stat Exams 09/04/24 23:22 Completed Pelvis XR 1-2 views [XR pelvis 1-2V] Stat Exams 09/04/24 23:22 Completed Medical Decision Narrative: 89-year-old female with history of prior hemorrhagic contusion presents after a fall while attempting to sit down onto her bed. She has a small laceration on the back of her head. She did not lose consciousness, has no tenderness on exam. History was obtained via interactive discussion with patient, EMS. On arrival, patient is [afebrile, hemodynamically stable, satting appropriately, alert, oriented x4, GCS 15], moving all extremities spontaneously. Differential includes but is not limited to intracranial trauma intrathoracic trauma intra-abdominal trauma spine trauma extremity trauma. Workup initiated including CT head, CT C-spine, radiograph of the chest and pelvis. Patient does not require Tdap. On re-evaluation, patient [remains afebrile, HD stable.] Imaging independently interpreted by me and significant for no evidence of intracranial bleeding or cervical fracture, chest x-ray shows a lung mass (patient reports she is aware and it is being followed), pelvic x-ray shows possible sclerotic lesions, no acute fracture. See radiology read for full review of final results. The patient's laceration was repaired by me at bedside with a single staple. Was discharged in stable condition with return precautions and instructions regarding wound care. Procedures Risk/Benefits of Procedure(s) Were Explained: Yes Laceration Laceration 1: Site: scalp (Occiput) Description: linear Depth: simple, single layer Pre-repair: wound explored, irrigated extensively and deep structures intact Skin layer closed with: other (Staple, 1) Critical Care Critical Care Time Critical Care Time: No
--- NOTE | 2024-09-04 23:44 | PC.NURSE ---
Pt to CT scan via stretcher
--- NOTE | 2024-09-05 00:02 | PC.NURSE ---
Pt back from xray
[2024-09-05 00:30] VITALS: BP 142/95
[2024-09-05 01:00] VITALS: BP 136/75
[2024-09-05 01:30] VITALS: BP 131/84
[2024-09-05 01:36] VITALS: BP 131/84; PULSE 74; RESP 20; TEMP 36.9; O2SAT 93
== END 2024-09-05 01:57 | disposition home or self-care (01) ==
PROVIDERS: Emergency Provider Emergency Medicine
DX: S01.01XA Laceration without foreign body of scalp, initial encounter (principal); R51.9 Headache, unspecified; R91.8 Other nonspecific abnormal finding of lung field; W06.XXXA Fall from bed, initial encounter; Y93.89 Activity, other specified; Y92.003 Bedroom of unspecified non-institutional (private) residence as the place of occurrence of the external cause
CPT/HCPCS: 12001; 70450; 71045; 72125; 72170; 99284

== ENCOUNTER 2025-01-06 10:55 | Emergency (ER) | payer MEDICARE, SELFPAY ==
[2025-01-06 11:19] VITALS: BP 188/95; PULSE 76; RESP 20; TEMP 36.5; O2SAT 97; BMI 23.8
--- NOTE | 2025-01-06 11:23 | XR_ITS ---
PROCEDURE INFORMATION: Exam: XR Chest Exam date and time: 01/06/2025 11:29 AM Age: 89 years old Clinical indication: Injury or trauma; Fall; Other: Pain TECHNIQUE: Imaging protocol: Radiologic exam of the chest. Views: 1 view. COMPARISON: CR XR CHEST PORTABLE 09/04/2024 11:55 PM FINDINGS: Lungs: A mass measuring 2.7 cm in the left upper lobe is stable. Pleural spaces: Unremarkable. No pleural effusion. No pneumothorax. Heart/Mediastinum: Mild cardiomegaly is stable. Vasculature: The aorta is calcified and tortuous. Bones/joints: Unremarkable. IMPRESSION: Mass measuring 2.7 cm in the left upper lobe is stable. Mild cardiomegaly is stable.
--- NOTE | 2025-01-06 11:28 | PC.NURSE ---
XR AT BEDSIDE
--- NOTE | 2025-01-06 11:32 | PC.NURSE ---
ER AT BEDSIDE
--- NOTE | 2025-01-06 11:35 | CT_ITS ---
PROCEDURE INFORMATION: Exam: CT Chest Without Contrast; Diagnostic Exam date and time: 01/06/2025 11:58 AM Age: 89 years old Clinical indication: Injury or trauma; Fall; Blunt trauma (contusions or hematomas); Additional info: Sternal pain after direct trauma TECHNIQUE: Imaging protocol: Diagnostic computed tomography of the chest without contrast. Radiation optimization: All CT scans at this facility use at least one of these dose optimization techniques: automated exposure control; mA and/or kV adjustment per patient size (includes targeted exams where dose is matched to clinical indication); or iterative reconstruction. COMPARISON: CT CHEST WO CON 05/08/2024 11:15 PM FINDINGS: Lungs: 2.4 cm mass in the anterior left upper lobe. Ground-glass nodule in the superior segment of right lower lobe measuring 7 mm Pleural spaces: Unremarkable. No pneumothorax. No pleural effusion. Heart: Unremarkable. Mild cardiomegaly. No pericardial effusion. No coronary artery calcification Lymph nodes: Unremarkable. No enlarged lymph nodes. Vasculature: Unremarkable. No aortic aneurysm. Bones/joints: Diffuse osteopenia. Soft tissues: Unremarkable. IMPRESSION: 1. Persistent mass in the left upper lobe measuring 2.4 cm. Ground-glass nodular density in the superior segment right lower lobe. 2. Osteopenia. No evidence of fracture
--- NOTE | 2025-01-06 11:36 | HMH.EDGENADL ---
Discharge Plan Disposition Patient Disposition: Home, Self-Care Prescriptions Prescriptions: No Action acetaminophen 325 mg capsule 325 mg PO QID PRN alendronate 70 mg/75 mL solution 35 mg PO WEEKLY calcium carbonate 500 mg calcium (1,250 mg) tablet 500 mg PO DAILY CertaVite Senior 0.4 mg-300 mcg- 250 mcg tablet 1 tab PO DAILY primidone 250 mg tablet 250 mg PO HS pantoprazole [Protonix] 20 mg tablet,delayed release (DR/EC) 20 mg PO DAILY levothyroxine [Synthroid] 50 mcg tablet 50 mcg PO DAILY cholecalciferol (vitamin D3) 25 mcg (1,000 unit) capsule 25 mcg PO DAILY zinc sulfate 50 mg zinc (220 mg) capsule 50 mg PO DAILY ondansetron 4 mg tablet,disintegrating 4 mg PO Q6H meclizine 25 mg tablet 25 mg PO DAILY PRN losartan 100 mg tablet 100 mg PO DAILY furosemide [Lasix] 20 mg tablet 20 mg PO DAILY terazosin 2 mg capsule 2 mg PO DAILY Adult Robitussin Peak Cold M-S 5-10-100 mg/5 mL liquid 10 ml PO Q4H PRN hydralazine 25 mg tablet 25 mg PO TID PRN (Reason: Systolic > 180) Qty: 90 2RF Referrals Follow up/Referrals: Provider,Referral, MD [Primary Care Provider] - See instructions Activity Restrictions/Add. Instructions Additional Instructions/Restrictions: There is no definitive evidence of a sternal fracture or other significant abnormalities. The lung mass that is previously been noted on imaging is stable. Please take 650 mg of Tylenol 3-4 times a day. Return with difficulty breathing cough fevers or other concerns. Clinical Impressions Clinical Impression: Contusion of sternum Print Language Print Language: Mozambican Discharge ED Provider: Isi Reyez General Adult HPI General Chief complaint: PAIN Stated complaint: AO-Fall 12/30- pain/bruise across chest from fall Time Seen by Provider: 01/06/25 11:28 Mode of Arrival: Ambulatory Source of Information: Patient Description of Symptoms (Recalled from ER Triage Doc. by RN): pt fell over her walker one week ago. compains of pain in her sternal area. it feels bruised on the inside History of Present Illness HPI narrative: Patient is an 89-year-old female presenting today with midsternal chest pain after she fell into her walker 1 week ago. The walker struck directly in the middle of her chest she has had pain since that time. She states that she has localized pain on her anterior chest worsening with movement. No pain or injuries elsewhere. Related Data Home Medications ?Medication ?Instructions ?Recorded ?Confirmed acetaminophen 325 mg capsule 325 mg PO QID PRN 10/14/23 11/08/23 alendronate 70 mg/75 mL oral 35 mg PO WEEKLY 10/14/23 11/08/23 solution calcium carbonate 500 mg PO DAILY 10/14/23 11/08/23 cholecalciferol (vitamin D3) 25 25 mcg PO DAILY 10/14/23 11/08/23 mcg (1,000 unit) capsule furosemide 20 mg tablet (Lasix) 20 mg PO DAILY 10/14/23 11/08/23 levothyroxine 50 mcg tablet 50 mcg PO DAILY 10/14/23 11/08/23 (Synthroid) losartan 100 mg tablet 100 mg PO DAILY 10/14/23 11/08/23 meclizine 25 mg tablet 25 mg PO DAILY PRN 10/14/23 11/08/23 mftdszin-eip-rwoak acid 0.4 1 tab PO DAILY 10/14/23 11/08/23 mg-lycopene 300 mcg-lutein 250 mcg tablet (CertaVite Senior) ondansetron 4 mg disintegrating 4 mg PO Q6H 10/14/23 11/08/23 tablet pantoprazole 20 mg tablet,delayed 20 mg PO DAILY 10/14/23 11/08/23 release (Protonix) [id number]-isukichysts 5 10 ml PO Q4H PRN 10/14/23 11/08/23 mg-10 mg-100 mg/5 mL oral liquid (Adult Robitussin Peak Cold M-S) primidone 250 mg tablet 250 mg PO HS 10/14/23 11/08/23 terazosin 2 mg capsule 2 mg PO DAILY 10/14/23 11/08/23 zinc sulfate 50 mg zinc (220 mg) 50 mg PO DAILY 10/14/23 11/08/23 capsule Previous Rx's ?Medication ?Instructions ?Recorded hydralazine 25 mg tablet 25 mg PO TID PRN Systolic > 180 10/14/23 #90 tabs Allergies Allergy/AdvReac Type Severity Reaction Status Date / Time No Known Allergies Allergy Verified 11/08/23 15:11 [facility] Disclaimer: The information contained in this section may have been updated after the patient was seen, as this information can be updated by other users. Social History Smoking Status: Never smoker alcohol intake: never current occupational status: retired Travel in the last 8 weeks: None Have you lived/traveled outside [place] in past 30 days?: No Contact w/someone who lives/traveled outside US past 30 days?: No Exposure to someone with infectious disease in past 14 days?: No Do you have a fever (greater than 100.4 F or 38 C)?: No Have you tested positive for COVID-19: No Exposed to someone with COVID-19 in past 14 days?: No Do you have a sore throat?: No Do you have a cough?: No Do you have any weakness?: No Do you have any diarrhea?: No Are you experiencing any unusual bleeding?: No Do you have any muscle aches/pain?: No Do you have any abdominal pain?: No Are you experiencing loss of taste or smell?: No Other Medical History Have you received the Pneumonia Vaccine: Yes ROS Obtained: Yes All systems reviewed & no additional complaints except as documented Physical Exam General General appearance: alert and in no apparent distress Head Head exam: atraumatic and normocephalic Neck Neck exam: Absent tenderness Chest Chest inspection: Present tenderness (Midsternal tenderness no step-offs or deformities) Respiratory Respiratory exam: Present normal lung sounds bilaterally; Absent respiratory distress Cardiovascular Cardiovascular exam: Present regular rate Neurological Exam Neurological exam: Present alert and oriented X3 Medical Decision Making Medical Records Screening: Per USPSTF and CDC recommendations, given the prevalence of disease in our region, it is our hospital?s policy to screen for HIV and viral Hepatitis for all patients aged 18 and over and those with ongoing risk factors. Gary Inquiry Pt receiving controlled substance: No Vital Signs: 01/06/25 11:19 Temperature 97.7 F Temperature Source Oral Pulse Rate [Left] 76 Respiratory Rate 20 Blood Pressure [Left Arm] 188/95 H Blood Pressure Mean [Left Arm] 126 02 Sat by Pulse Oximetry 97 Oxygen Delivery Method Room Air Orders (Tests/Meds): ED MEDICATIONS Discontinued Medications Generic Name Dose Route Start Last Admin Trade Name Freq PRN Reason Stop Dose Admin Acetaminophen 650 mg 01/06/25 11:35 01/06/25 11:38 Acetaminophen 325mg Tab PO 01/06/25 11:36 650 mg ONCE ONE Administration ORDERS Category Date Time Status CT chest wo con Stat Cat Scan 01/06/25 11:35 Completed Chest XR -- portable [XR chest portable] Stat Exams 01/06/25 11:23 Completed Medical Decision Narrative: 89-year-old with above history and physical with an isolated injury to her anterior chest tenderness on her sternum without injuries elsewhere. Chest x-ray was performed which I personally interpreted which shows no evidence of obvious significant traumatic injury. However we will get a CT scan to further evaluate her anterior ribs and sternum. I do not suspect she has a myocardial injury or contusion. She is not taking any pain medicine for this at all we will give her Tylenol and reassess. CT scans performed which I personally interpreted no definitive evidence of a sternal fracture or other significant abnormalities other than a lung mass that stable. However on the sagittal views and the bone windows there is a step-off of the sternum itself but again no definitive fracture. Radiology read this is negative from a fracture standpoint as well. Supportive care discussed including deep breaths and Tylenol administration. Patient's not having any difficulty breathing and no pain with inspiration. She understands this may take a while to recover. She was discharged in stable condition. Critical Care Critical Care Time Critical Care Time: No
[2025-01-06] MEDS: ACETAMINOPHEN 325MG TAB 650 MG PO (11:38)
--- NOTE | 2025-01-06 11:46 | PC.NURSE ---
PT TRANSPORTED TO [facility] VIA WC
--- NOTE | 2025-01-06 12:35 | PC.WOUNDNOTE ---
DR TATE AT BEDSIDE TO UPDATE PT
--- NOTE | 2025-01-06 12:37 | PC.NURSE ---
ER AT BEDSIDE
[2025-01-06 13:01] VITALS: BP 182/101; PULSE 70; RESP 18; TEMP 36.6; O2SAT 94
== END 2025-01-06 13:03 | disposition home or self-care (01) ==
PROVIDERS: Emergency Provider Student in an Organized Health Care Education/Training Program
DX: S20.219A Contusion of unspecified front wall of thorax, initial encounter (principal); R07.89 Other chest pain; W18.39XA Other fall on same level, initial encounter
CPT/HCPCS: 71045; 71250; 99284